=== PATIENT | female | born 1975 | race Caucasian/White ===

== ENCOUNTER 2021-06-02 10:20 | Emergency (ER) | payer BC ==
[~2021-06-02] VITALS: Ht 177.8 cm; Wt 126.8 kg
[2021-06-02] MEDS ORDERED: ONDANSETRON ODT 4 MG TAB.RAPDIS. PO ONE (11:15)
--- NOTE | 2021-06-02 11:24 | RAD ---
XR KNEE _4 VIEWS WITH PATELLA_LT Clinical indications: Reason: fall on friday /left knee pain. Findings: No acute fracture or dislocation or osteolytic process is evident. The patella is normally aligned. Tricompartmental primary degenerative osteoarthritis of the left knee is seen most prominen tly involving the medial tibiofemoral joint compartment. No significant left knee joint effusion is s een. IMPRESSION: No acute osseous abnormality is evident. Electronically signed by: Bobby Cabral MD (06/02/2021 11:22 AM) [id number]
--- NOTE | 2021-06-02 12:17 | RAD ---
EXAM: CT HEAD WITHOUT IV CONTRAST CLINICAL HISTORY: Reason: fall on friday, on coumadin, etoh intoxication COMPARISON: None. TECHNIQUE: Routine CT of the head without contrast. Soft tissues and bone windows were reviewed. PQRS compliance statement - One or more of the following individualized dose reduction techniques wer e utilized for this study: 1. Automated exposure control 2. Adjustment of the mA and/or kV according to patient size 3. Use of iterative reconstruction technique FINDINGS: There is no evidence of hemorrhage, mass or extra-axial fluid collection. Boroks-white differentiation is maintained with no evidence of edema. There is no mass effect or shift of the intracranial structures. The ventricles, basilar cisterns and cortical sulci are normal in size and configuration for the tiffany ents stated age. The cerebellum and brainstem are unremarkable. The calvarium demonstrates no evidence of fracture or focal lesion. There is normal aeration of the visualized paranasal sinuses and mastoid air cells. The visualized portions of the orbits are normal. IMPRESSION: No evidence for acute intracranial process. EXAM: CT CERVICAL SPINE WITHOUT IV CONTRAST CLINICAL HISTORY: Reason: fall on friday, on coumadin, etoh intoxication / Spl. Instructions: / H istory: COMPARISON: None available. TECHNIQUE: Helical CT of the cervical spine was performed. Axial, coronal and sagittal reformatted im ages were also performed. PQRS compliance statement - One or more of the following individualized dose reduction techniques wer e utilized for this study: 1. Automated exposure control 2. Adjustment of the mA and/or kV according to patient size 3. Use of iterative reconstruction technique FINDINGS: Vertebral body heights are preserved. Trace anterolisthesis of C2 on C3, C3 on C4. Moderate disc height loss C4-5.. Moderate to severe disc height loss at C5-6 and C6-7 with prominent posterior disc osteophyte complexes C4-5, C5-6 and C6-7 resulting in moderate to severe central canal stenosis. IMPRESSION: 1. Multilevel spondylosis as above 2. Negative acute fracture or subluxation. EXAM: CT of the orbits without contrast CLINICAL HISTORY: Reason: fall on friday, on coumadin, etoh intoxication / Spl. Instructions: / H istory: COMPARISON: None available. TECHNIQUE: Helical CT of the orbits was acquired and axial, coronal and sagittal reformatted images w ere generated. ---PQRS compliance statement - One or more of the following individualized dose reduction techniques were utilized for this study: 1. Automated exposure control 2. Adjustment of the mA and/or kV according to patient size 3. Use of iterative reconstruction technique--- FINDINGS: The globes, extraocular muscles, optic nerves and retrobulbar fat are normal. There is moderate infil tration about the left orbit. No definite fracture is noted of the facial bones. The visualized paranasal sinuses are well-aerated. Trace thickening of the maxillary sinuses, sinusit is. No evidence of air-fluid levels. The mastoids are unremarkable. Visualized upper aerodigestive tract is normal. Mandible and bilateral temporomandibular joints are normal. IMPRESSION: Soft tissue swelling about the left orbit without associated fluid collection or abnormality of the o rbits. Electronically signed by: Tommie Gillespie MD (06/02/2021 12:15 PM) DORI
--- NOTE | 2021-06-02 12:35 | PHYS DOC ---
Past Medical History Additional Past Medical Histor: SUPERFICIAL BLOOD CLOTS IN LEGS, PCOS Past Surgical History: Cholecystectomy, Gastric Bypass, Other Additional Past Surgical Histo: MINSCUS REPAIR Smoking Status: Never Smoker Alcohol Use: None General Adult EDM: Chief Complaint: MECHANICAL FALL HPI: HPI: Patient is a 46 year old female on Coumadin for frequent blood clots who presents with left-sided facial ecchymosis and left knee pain status post fall 3 days ago. Patient states that she was consuming alcohol, when she fell into a wall and lost consciousness. She is unsure exactly how long she lost consciousness. She did not present to the ER, as she thought that her fall was a result of her alcohol intoxication only. Patient reports bruising to the left side of her face around the supraorbital ridge. Additionally, she has knee pain exacerbation after the fall. Patient reports she has had some "tunnel vision" and been nauseated since the incident. She has not thrown up. Patient reports her last INR was checked the day before she fell. At that time, they decreased her Coumadin dose. She is scheduled to have another INR check next week. Patient has no other complaints at this time. Review of Systems: Review of Systems: Constitutional: Denies fever, chills or generalized weakness Eyes: Denies change in visual acuity, visual field deficits or discharge HENT: Denies ear pain, nasal congestion or sore throat Respiratory: Denies cough or shortness of breath Cardiovascular: Denies chest pain, palpitations or edema GI: See HPI : Denies dysuria or hematuria Musculoskeletal: See HPI Integument: Denies rash or other skin lesion Neurologic: See HPI Heart Score: C/O Chest Pain: No Current Medications: Current Medications Medications (Trade) Dose Ordered Sig/Sergo Start Time Stop Time Status Last Admin Dose Admin Ondansetron HCl (Zofran Odt) 4 mg 1X ONCE 06/02/21 11:15 06/02/21 11:16 DC 06/02/21 11:15 4 MG Allergies: Allergies: Allergies Coded Allergies Type Severity Reaction Last Updated Verified albuterol Allergy Severe 06/02/21 Yes Physical Exam: PE: Constitutional: Well developed, well nourished, no acute distress, non-toxic appearance. HENT: Normocephalic, bilateral external ears without deformity/ecchymosis or di scharge, oropharynx moist, no oral exudates, nose without deformity or discharge. Eyes: Lateral supraorbital ridge ecchymosis appreciated without edema, no subconjunctival hemorrhage appreciated, no hyphema, PERRL, EOMI, conjunctiva no rmal, no discharge. Neck: Normal range of motion, no tenderness, no stridor. Cardiovascular: Heart rate regular rhythm, no murmur. Lungs & Thorax: Bilateral breath sounds clear to auscultation. Skin: Warm, dry, no erythema, no rash, no laceration or abrasion. Back: No step-offs, no tenderness. Extremities: No tenderness, no cyanosis, no clubbing, ROM intact, no edema. Bilateral varicose veins appreciated. Neurologic: Alert and oriented x4, steady and symmetrical upright gait, no focal deficits noted. Current Patient Data: Labs: PROCEDURE: KNEE LEFT 4V XR KNEE _4 VIEWS WITH PATELLA_LT Clinical indications: Reason: fall on friday /left knee pain. Findings: No acute fracture or dislocation or osteolytic process is evident. The patella is normally aligned. Tricompartmental primary degenerative osteoarthritis of the left knee is seen most prominently involving the medial tibiofemoral joint compartment. No significant left knee joint effusion is seen. IMPRESSION: No acute osseous abnormality is evident. Electronically signed by: Bobby Cabral MD (06/02/2021 11:22 AM) [id number] Vital Signs: Vital Signs Date Time Temp Pulse Resp B/P (MAP) Pulse Ox O2 Delivery O2 Flow Rate FiO2 06/02/21 10:33 98.0 84 18 165/96 (119) 99 Room Air 98.0 Radiology/Procedures: Radiology/Procedures: EXAM: CT HEAD WITHOUT IV CONTRAST CLINICAL HISTORY: Reason: fall on friday, on coumadin, etoh intoxication COMPARISON: None. TECHNIQUE: Routine CT of the head without contrast. Soft tissues and bone windows were reviewed. PQRS compliance statement - One or more of the following individualized dose reduction techniques were utilized for this study: 1. Automated exposure control 2. Adjustment of the mA and/or kV according to patient size 3. Use of iterative reconstruction technique FINDINGS: There is no evidence of hemorrhage, mass or extra-axial fluid collection. Brooks-white differentiation is maintained with no evidence of edema. There is no mass effect or shift of the intracranial structures. The ventricles, basilar cisterns and cortical sulci are normal in size and configuration for the patients stated age. The cerebellum and brainstem are unremarkable. The calvarium demonstrates no evidence of fracture or focal lesion. There is normal aeration of the visualized paranasal sinuses and mastoid air cells. The visualized portions of the orbits are normal. IMPRESSION: No evidence for acute intracranial process. EXAM: CT CERVICAL SPINE WITHOUT IV CONTRAST CLINICAL HISTORY: Reason: fall on friday, on coumadin, etoh intoxication / Spl. Instructions: / History: COMPARISON: None available. TECHNIQUE: Helical CT of the cervical spine was performed. Axial, coronal and sagittal reformatted images were also performed. PQRS compliance statement - One or more of the following individualized dose reduction techniques were utilized for this study: 1. Automated exposure control 2. Adjustment of the mA and/or kV according to patient size 3. Use of iterative reconstruction technique FINDINGS: Vertebral body heights are preserved. Trace anterolisthesis of C2 on C3, C3 on C4. Moderate disc height loss C4-5.. Moderate to severe disc height loss at C5-6 and C6-7 with prominent posterior disc osteophyte complexes C4-5, C5-6 and C6-7 resulting in moderate to severe central canal stenosis. IMPRESSION: 1. Multilevel spondylosis as above 2. Negative acute fracture or subluxation. EXAM: CT of the orbits without contrast CLINICAL HISTORY: Reason: fall on friday, on coumadin, etoh intoxication / Spl. Instructions: / History: COMPARISON: None available. TECHNIQUE: Helical CT of the orbits was acquired and axial, coronal and sagittal reformatted images were generated. ---PQRS compliance statement - One or more of the following individualized dose reduction techniques were utilized for this study: 1. Automated exposure control 2. Adjustment of the mA and/or kV according to patient size 3. Use of iterative reconstruction technique--- FINDINGS: The globes, extraocular muscles, optic nerves and retrobulbar fat are normal. There is moderate infiltration about the left orbit. No definite fracture is noted of the facial bones. The visualized paranasal sinuses are well-aerated. Trace thickening of the m axillary sinuses, sinusitis. No evidence of air-fluid levels. The mastoids are unremarkable. Visualized upper aerodigestive tract is normal. Mandible and bilateral temporomandibular joints are normal. IMPRESSION: Soft tissue swelling about the left orbit without associated fluid collection or abnormality of the orbits. Electronically signed by: Tommie Gillespie MD (06/02/2021 12:15 PM) [facility] PROC[facility]: KNEE LEFT 4V XR KNEE _4 VIEWS WITH PATELLA_LT Clinical indications: Reason: fall on friday /left knee pain. Findings: No acute fracture or dislocation or osteolytic process is evident. The patella is normally aligned. Tricompartmental primary degenerative osteoarthritis of the left knee is seen most prominently involving the medial tibiofemoral joint compartment. No significant left knee joint effusion is seen. IMPRESSION: No acute osseous abnormality is evident. Electronically signed by: Bobby Cabral MD (06/02/2021 11:22 AM) [id number] Course & Med Decision Making: Course & Med Decision Making Pertinent Labs and Imaging studies reviewed. (See chart for details) Patient is a 46-year-old female who presents to the emergency department status post fall on Friday (3 days ago). Patient does take Coumadin for frequent blood clots that were not well controlled on other medications. At the time of her fall, she was also EtOH intoxicated. Her INR was last checked the day before her fall, and she is scheduled to have it rechecked next week. Addit ional coag testing deferred at this time. No evidence of acute injury seen on CT of head, neck, orbits. No acute changes seen on plain films of left knee. Patient informed of findings and strongly advised to keep her follow-up appointment next week. Return precautions were provided. Patient understands and is agreeable to discharge plan. Dragon Disclaimer: Dragon Disclaimer: This electronic medical record was generated, in whole or in part, using a voice recognition dictation system. Departure Departure Impression: Primary Impression: Facial contusion Qualified Codes: S00.83XA - Contusion of other part of head, initial encounter Additional Impressions: Contusion of left knee, initial encounter Elevated blood pressure reading Disposition: HOME / SELF CARE / HOMELESS Condition: STABLE Referrals: KALEB TRIANA III, MD (PCP) Patient Instructions: Eye Contusion, [id number], Facial or Scalp Contusion, [id number], RICE - Routine Care for Injuries, [id number], Warfarin, [id number] Additional Instructions: EMERGENCY DEPARTMENT GENERAL DISCHARGE INSTRUCTIONS Thank you for coming to [facility] Emergency Department (ED) today and trusting us with you care. We trust that you had a positive experience in our Emergency Department. If you wish to speak to the department management, you may call the director at . YOUR FOLLOW UP INSTRUCTIONS ARE FOLLOWS: 1. Follow up with your primary care doctor. If you do not have a primary doctor, please ask for a resource list of physicians or clinics that may be able to assist you with follow up care. 2. The emergency provider has interpreted your imaging studies, if any were ordered. The radiology interactive media specialist also reviewed them. If there is a change in the findings, you will be notified in 48 hours when at all possible. 3. If a lab test or culture has been done, your results will be reviewed and you will be notified if you need a change in treatment. 4. Follow instructions verbalized to you and refer to the printouts if needed. ADDITIONAL INSTRUCTIONS AND INFORMATION: 1. Your care today has been supervised by a physician who is specially trained in emergency care. Many problems require more than one evaluation for a complete diagnosis and treatment. We recommend that you schedule your follow up appointment as recommended to ensure complete treatment of you illness or injury. If you are unable to obtain follow up care and continue to have a problem, or if your condition worsens, we recommend that you return to the ED. 2. We are not able to safely determine your condition over the phone nor are we able to give sound medical advice over the phone. For these safety reasons, if you call for medical advice we will ask you to come to the ED for further evaluation. 3. If you have any questions regarding these discharge instructions please call the ED at . SAFETY INFORMATION: In the interest of safety, wellness, and injury prevention; we encourage you to wear your seat belt, if you smoke; quite smoking, and we encourage family to use a protective helmet for bicycling and other sporting events that present an increased risk for head injury. IF YOUR SYMPTOMS WORSEN OR NEW SYMPTOMS DEVELOP, OR YOU HAVE CONCERNS ABOUT YOUR CONDITION; OR IF YOUR CONDITION WORSENS WHILE YOU ARE WAITING FOR YOUR FOLLOW UP APPOINTMENT; EITHER CONTACT YOUR PRIMARY CARE DOCTOR, THE PHYSICIAN WHOSE NAME AND NUMBER YOU WERE GIVEN, OR RETURN TO THE ED IMMEDIATELY. JOSE DE JESUS SHAFFER Jun 02, 2021 12:35
[2021-06-02 12:42] VITALS: BP 152/73
== END 2021-06-02 12:50 | disposition home or self-care (01) ==
LOC: ER 10:20
DX: S00.83XA Contusion of other part of head, initial encounter (principal); S80.02XA Contusion of left knee, initial encounter; R03.0 Elevated blood-pressure reading, without diagnosis of hypertension; Z98.84 Bariatric surgery status; Z88.8 Allergy status to other drugs, medicaments and biological substances; W18.39XA Other fall on same level, initial encounter; Y93.89 Activity, other specified; Y92.89 Other specified places as the place of occurrence of the external cause; Y99.8 Other external cause status
CPT/HCPCS: 70450; 70480; 72125; 73564; 99284-25